=== PATIENT | male | born 1970 | race Hispanic/Latino ===

== ENCOUNTER 2024-11-25 14:47 | Emergency (ER) | payer OTHER, MEDICAID, SELFPAY ==
[2024-11-25 14:50] VITALS: BP 175/106; PULSE 87; RESP 20; TEMP 36.6; O2SAT 100; BMI 25.7
[2024-11-25 18:05] VITALS: BP 177/103; PULSE 77; O2SAT 100
[2024-11-25 18:07] VITALS: BP 159/105; PULSE 70; O2SAT 100
[2024-11-25 18:09] VITALS: BP 192/98; RESP 16
--- NOTE | 2024-11-25 18:19 | ED_ITS ---
HPI - Extremity Injury (Upper) General Chief Complaint: Extremity Injury, Upper Stated Complaint: R Hand Finger Laceration Time Seen by Provider: 11/25/24 14:58 Source: patient Mode of arrival: Ambulatory History of Present Illness HPI narrative: Patient is a 54-year-old male no significant past medical history presenting from home for evaluation of burn to the right ring finger, he states that he hit his hand on electric and falling zapper racquet at a proximally 8:00 p.m. yesterday. He said he current the wound with a hydrogen peroxide but denies any other injuries at this time. Patient not on any blood thinners denies any other injuries. Related Data Previous Rx's ?Medication ?Instructions ?Recorded clindamycin HCl 300 mg capsule 300 mg PO Q8H #30 caps 09/09/22 doxycycline hyclate 100 mg capsule 100 mg PO BID 7 day s #14 caps 11/25/24 Allergies Allergy/AdvReac Type Severity Reaction Status Date / Time Penicillins AdvReac Intermediate ITCHING Verified 11/25/24 14:50 Review of Systems Review of Systems Narrative: General: Denies fever, chills, weight loss HEENT: Denies headache, eye drainage, eye irritation, head trauma, sore throat, voice change Cardiovascular: Denies any chest pain, palpitations, tachycardia Respiratory: Denies any shortness of breath, cough, wheeze, stridor GI/: Denies any abdominal pain, nausea, vomiting, diarrhea, bright red blood per rectum, melanotic stools, urinary frequency, urinary retention, dysuria, hematuria MSK: Denies any joint pain, muscle pains, swelling Skin: Wound to right ring finger and pinky finger Neuro: Denies any headache, lightheadedness, dizziness, fainting, weakness Psych: Denies SI/HI Patient History Smoking Status: Former smoker Exam Narrative Exam Narrative: General: Cooperative, well-developed, not in acute distress HEENT: Normocephalic, atraumatic, PERRLA, normal sclera, eyelids normal Neck: Active full range of motion, atraumatic Chest: Normal to inspection, negative crepitus, no overlying erythema ecchymosis Respiratory: Normal respiratory effort, not in acute respiratory distress, clear to auscultation bilaterally negative cough, wheeze, tachypnea, rhonchi, rales Cardiology: Regular rate rhythm negative gallop, murmur, rubs GI/: No tenderness to palpation, soft, non rigid, normal to inspection, exam deferred MSK: Full active range of motion in all 4 extremities, atraumatic, no tenderness to palpation of any bony prominences Skin: Patient with avulsion of the dorsal aspect of patient's right 4th and 5th digit, not actively bleeding, no bony exposure, otherwise neurovascularly intact Neuro: Alert awake oriented x3, moves all 4 extremities spontaneously, cranial nerves intact, able to answer all questions appropriately follows commands appropriately Psych: Cooperative, negative suicidal or homicidal ideations Initial Vital Signs Initial Vital Signs: Vital Signs Temperature 98 F 11/25/24 14:50 Pulse Rate 87 11/25/24 14:50 Respiratory Rate 20 11/25/24 14:50 Blood Pressure 175/106 H 11/25/24 14:50 Pulse Oximetry 100 11/25/24 14:50 Oxygen Delivery Method Room Air 11/25/24 14:50 Course Vital Signs Vital signs: Vital Signs - 8 hr 11/25/24 14:50 Temperature 98 F Pulse Rate 87 Respiratory Rate 20 Blood Pressure 175/106 H Pulse Oximetry 100 Oxygen Delivery Method Room Air MDM - Extremity Injury (Upper) MDM Narrative Medical decision making narrative: Patient is a 54-year-old male without any significant past medical history presenting from home for evaluation of wound to right ring and pinky finger. [facility] this happened after he hit it on an electric bug zapper racquet at around 8:00 p.m. yesterday. States that he did clean it with hydrogen peroxide but wanted it to be evaluated. He is not on any blood thinners denies any other injuries, on exam he has more of an avulsion of the skin to the dorsal aspect of the 4th and 5th digit, he is neurovascularly intact non circumferential no indications or concerns for compartment syndrome at this time. Patient had tetanus shot updated here. He will be sent home with oral antibiotics for prophylaxis and instructed follow up with primary care in outpatient setting. He verbalized understanding of this and agrees to being discharged home with outpatient follow up. Patient is left-handed Discharge Plan Departure Patient Disposition: Home Clinical Impression: Abrasion of right ring finger, initial encounter Activity Restrictions/Additional Instructions: Please follow up with your primary care doctor Please read the discharge instructions sheet carefully and bring all papers to all doctor follow-up visits, as it may contain information that your doctor may want to see. Disease processes change and evolve, if your symptoms worsen or if you develop any new symptoms that are concerning to you please return for evaluation. Your evaluation today does not show any evidence of any life- threatening/serious illnesses requiring admission to the hospital or surgery. Please follow-up with your doctor for re-evaluation in approximately 1 day. Seek immediate medical attention for any worrisome symptoms. *If you do not have a primary care provider please contact the [facility] Resource line at [phone]. They will ask some questions about your medical history and help get you set up with a doctor in the community. Prescriptions: New doxycycline hyclate 100 mg capsule 100 mg PO BID 7 Days Qty: 14 0RF No Action clindamycin HCl 300 mg capsule 300 mg PO Q8H Qty: 30 0RF Referrals: Adolfo Grimaldo MD [Primary Care Provider, Family Practice] Stand Alone Forms: Patient Portal/API
--- NOTE | 2024-11-25 18:30 | PC.NURSE ---
pt reports that he scathed his right pinky, ring, and middle finger on fly zapper like sample grader yesterday and went to local fire dept who cleaned and bandaged fingers for pt. This nurse removed old bandaging, rinsed and cleansed laceration(s) and reapplied fresh bandages
[2024-11-25] MEDS: DOXYCYCLINE HYCLATE 100 MG TABLET PO (18:33)
[2024-11-25] MEDS: TET,DIPH,PERTUSS(ACELL),VAC/PF 0.5 ML SYRINGE IM (18:34)
== END 2024-11-25 18:47 | disposition home or self-care (01) ==
PROVIDERS: Emergency Provider Student in an Organized Health Care Education/Training Program; PCP Family Medicine
DX: S60.414A Abrasion of right ring finger, initial encounter (principal); S60.416A Abrasion of right little finger, initial encounter; X58.XXXA Exposure to other specified factors, initial encounter; Z23 Encounter for immunization
CPT/HCPCS: 90471; 99283; 90715